=== PATIENT | female | born 1990 | race African-American/Black ===

== ENCOUNTER 2016-09-17 12:58 | Emergency (ER) | payer BC ==
[~2016-09-17] VITALS: Ht 157.5 cm; Wt 65.0 kg
[2016-09-17 13:09] VITALS: Ht 157.5 cm; Wt 65.0 kg
[2016-09-17] MEDS ORDERED: ONDANSETRON (ODT) 4 MG TAB ODT STA (13:35)
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
[2016-09-17] MEDS ORDERED: HYDROCODONE/APAP (5/325) TAB PO ONE (14:00)
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
[2016-09-17] MEDS ORDERED: NAPR-260 PO (14:55)
[2016-09-17] MEDS ORDERED: HYDR-906 PO (14:55)
== END 2016-09-17 15:09 | disposition home or self-care (01) ==
LOC: FTE 12:58
DX: S40.022A Contusion of left upper arm, initial encounter (principal); S79.912A Unspecified injury of left hip, initial encounter; S79.922A Unspecified injury of left thigh, initial encounter; V43.52XA Car driver injured in collision with other type car in traffic accident, initial encounter
CPT/HCPCS: 73060; 73510; 73550